=== PATIENT | male | born 1950 | race Caucasian/White ===

== ENCOUNTER 2017-02-21 07:25 | Emergency (ER) | payer OTHER ==
[2017-02-21] MEDS ORDERED: IBUPROFEN 600 MG TAB PO ONE (08:07)
[2017-02-21] MEDS ORDERED: ACETAMINOPHEN 325 MG TAB PO ONE (08:07)
--- NOTE | 2017-02-21 08:32 | EDPHY ---
H & P Time Seen by Provider: 02/21/17 08:05 HPI/ROS: CHIEF COMPLAINT: Left toe/foot injury HISTORY OF PRESENT ILLNESS: The patient is a 66-year-old male who presents to the emergency department with injury to his left toe and foot. Patient states that he had a mechanical trip and fall forward. He now has a deformity of his distal 2nd toe. He has moderate discomfort. The pain radiates up the dorsal aspect of his foot. Patient also complains of an abrasion to his left knee. He has no left knee pain. He is able to ambulate, but with pain in his toe. He did not strike his head or lose consciousness. REVIEW OF SYSTEMS: My complete review of systems is negative except as mentioned in the HPI. Past Medical/Surgical History: Includes scabies, hypertension, chronic back pain, sleep disorder Social history: The patient denies alcohol Smoking Status: Former smoker Physical Exam: Vitals noted GENERAL: Well-appearing, in no acute distress, alert. HEAD: No evidence of trauma. EYES: PERRLA, EOMI, normal to inspection. ENT: Airway intact, no dental or oral injury, no malocclusion, no hemotympanum , normal external examination. NECK: The trachea is midline. There is no crepitus. The C-spine is nontender. NEXUS criteria is negative (no midline tenderness, no distracting injury, no altered mental status, no recent alcohol use, no focal neurologic deficit). RESPIRATORY: Clear to auscultation bilaterally, no rales, rhonchi or wheezing. There is no crepitus or palpable rib fractures. CVS: Regular rate and rhythm, no rubs, murmurs, or gallops. ABDOMEN: Soft, nontender, nondistended, normal bowel sounds, no bruising or abrasions. Pelvis: Stable. No tenderness palpation. Hips full range of motion. BACK: Normal to inspection, no spinal tenderness, no spinal step off, no notable bruising or abrasions. SKIN: Normal color, warm, dry. No pallor or diaphoresis. EXTREMITIES: Right upper extremity: Atraumatic. No visible signs of trauma. No tenderness palpation. Neurovascular intact distally. Left upper extremity: Atraumatic. No visible signs of trauma. No tenderness palpation. Neurovascular intact distally. Right lower extremity: Atraumatic. No visible signs of trauma. No tenderness palpation. Neurovascular intact distally. Left lower extremity: The patient has a deformity of his left 2nd distal 5th toe. There is no foot swelling. No open wound or laceration. Patient has brisk capillary refill in all of his toes. Patient has abrasion on his left knee. There is no patellar tenderness palpation. Full range of motion of his left knee. He is able to bear weight on his left knee Atraumatic, neurovascularly intact distally in all extremities, pelvis is stable , hips with full range of motion, moves all extremities freely. NEURO/PSYCH: Alert and oriented x 3, GCS 15, normal mood and affect, normal motor sensory exam. Constitutional: Initial Vital Signs Temperature (C) 36.9 C 02/21/17 07:27 Heart Rate 89 02/21/17 07:27 Respiratory Rate 14 02/21/17 07:27 Blood Pressure 156/99 H 02/21/17 07:27 O2 Sat (%) 94 02/21/17 07:27 O2 Delivery Mode Room Air Allergies/Adverse Reactions: lisinopril Allergy (Verified 07/17/16 21:10) Home Medications: Medication Instructions Recorded Vicodin 5-300 mg Tablet 04/20/16 Metoprolol Tartrate 07/17/16 Permethrin 5% [Elimite 5%] 60 amado TP ONCE #2 tube 07/17/16 Medical Decision Making - Diagnostics Imaging Results: Imaging Impressions Toe X-Ray 02/21/17 07:30 Impression: Dislocated second toe at the proximal interphalangeal joint. Suspect tiny chip fracture. Toe X-Ray 02/21/17 08:22 Impression: Successful reduction. Procedures: Procedure: toe dislocation reduction Patient verbally consented to reduction of his toe. Using standard technique and manual manipulation is toe was reduced. Patient tolerated procedure well. Patient was neurovascularly intact postprocedure. ED Course/Re-evaluation: In the emergency department I discussed possible etiologies with the patient. I answered all his questions. He consented to an x-ray. Left foot x-ray: Patient has a dislocated PIP of his 2nd left toe. No metatarsal fracture I discussed the result with the patient. He consented to reduction. The patient's toe was reduced manually. Patient tolerated the procedure well. Post reduction x-ray was ordered. Left foot x-ray post reduction: The patient's toe was reduced. I discussed the result with the patient. He is placed in a [place]eca boot. Post splint placement patient was neurovascular intact distally. He is given warnings. He will follow up with Orthopedics. Differential Diagnosis: My differential includes but is not limited to dislocation, fracture, sprain, contusion - Data Points Medications Given: Discontinued Medications Acetaminophen (Tylenol) 650 mg PO EDNOW ONE Stop: 02/21/17 08:08 Last Admin: 02/21/17 08:11 Dose: 650 mg Ibuprofen (Motrin) 600 mg PO EDNOW ONE Stop: 02/21/17 08:08 Last Admin: 02/21/17 08:11 Dose: 600 mg Departure - Departure Disposition: Home, Routine, Self-Care Clinical Impression: Toe dislocation Qualifiers: Encounter type: initial encounter Laterality: left Qualified Code(s): S93.105A - Unspecified dislocation of left toe(s), initial encounter Condition: Good Instructions: Toe Fracture (ED) Additional Instructions: Keep your boot in place. Return with increasing pain, swelling or any other concerns. You need close follow-up with Orthopedics. Referrals: Sepideh Mejias MD [Primary Care Provider] - 5-7 days, call for appt. James Robles MD [Medical Doctor] - 5-7 days, if not improved
[2017-02-21 09:01] VITALS: BP 133/92; PULSE 76; RESP 18; TEMP 99; O2SAT 92
== END 2017-02-21 08:59 | disposition home or self-care (01) ==
PROC: 0SSQXZZ Reposition Left Toe Phalangeal Joint, External Approach (ICD-10-PCS; principal; 2017-02-21)
DX: S93.115A Dislocation of interphalangeal joint of left lesser toe(s), initial encounter (principal); I10 Essential (primary) hypertension; Z87.891 Personal history of nicotine dependence; W01.0XXA Fall on same level from slipping, tripping and stumbling without subsequent striking against object, initial encounter
CPT/HCPCS: 28660; 73660; 99283; L4386

== ENCOUNTER 2017-05-26 21:17 | Emergency (ER) | payer OTHER ==
--- NOTE | 2017-05-26 22:10 | EDPHY ---
H & P Stated Complaint: l sided traore HPI/ROS: HPI CHIEF COMPLAINT: Left-sided headache x2 months HISTORY OF PRESENT ILLNESS: This patient is otherwise healthy 66-year-old male he does have significant past medical history for hypertension, not on any blood pressure medications, history of scabies and obesity. History of C diff. Patient presents emergency room stating that he has had 2 months or 6-8 weeks of left-sided throbbing pressure-like headache. He denies visual disturbance. Denies neck pain, neck stiffness, fever, numbness or tingling, focal weakness, visual disturbance. States the headache is described as a throbbing pulsating pressure pain left side of his head. Been there present for 2 months. Decided come the emergency room as his ex- encouraged him to as he has been complaining of this for 2 months and is not seek medical care for this. Past Medical History: Hypertension, history scabies, C diff, obesity Past Surgical History: No recent surgery Social History: Denies daily use drugs alcohol tobacco products however has been using marijuana recently. Family History: Noncontributory ROS REVIEW OF SYSTEMS: A comprehensive 10 point review of systems is otherwise negative aside from elements mentioned in the history of present illness. Exam Constitutional appears nontoxic, triage nursing summary reviewed, vital signs reviewed, awake/alert. Eyes normal conjunctivae and sclera, EOMI, PERRLA. HENT normal inspection, atraumatic, moist mucus membranes, no epistaxis, neck supple/ no meningismus, no raccoon eyes. Respiratory clear to auscultation bilaterally, normal breath sounds, no respiratory distress, no wheezing. Cardiovascular rate normal, regular rhythm, no murmur, no edema, distal pulses normal. Gastrointestinal soft, non-tender, no rebound, no guarding, normal bowel sounds, no distension, no pulsatile mass. Genitourinary no CVA tenderness. Musculoskeletal no midline vertebral tenderness, full range of motion, no calf swelling, no tenderness of extremities, no meningismus, good pulses, neurovascularly intact. Skin pink, warm, & dry, no rash, skin atraumatic. Neurologic normal neurological exam, awake, alert and oriented x 3, AAOx3, moves all 4 extremities equally, motor intact, sensory intact, CN II-XII intact , normal cerebellar, normal vision, normal speech. Psychiatric normal mood/affect. Heme/Lymph/Immune no lymphadenopathy. Differential Diagnosis: Includes but is not limited to in a particular order, migraine headache, tension headache, cluster headache, intracranial mass, aneurysm, vascular malformation, hypertension headache Medical Decision Making: Plan for this patient IV establishment, monitor, CT head without contrast, CT angiogram head and neck, migraine cocktail, IV fluids , basic blood work. Re-evaluate. Re-evaluation: 1234AM: Patient's CT scan angiogram head and neck and CT head without contrast are unremarkable for mass, dissection or aneurysm. No bleed. Unremarkable CT imaging of his head and neck. Patient's blood work has been reviewed is unremarkable vital signs are stable. Patient's blood pressure was noted to be elevated when he arrived here is down on its own. I do recommend he follows up with his primary care doctor about his headache as well distally he is blood pressure. He is not on any blood pressure medication. He says he reacts very ill to most of them. I do not feel that he needs an acute lower his blood pressure this time her need for lowering of his blood pressure at this time. Recommend close follow-up with his PCP. He understands this. Source: Patient - Personal History Current Tetanus Diphtheria and Acellular Pertussis (TDAP): Unsure - Medical/Surgical History Hx Asthma: No Hx Chronic Respiratory Disease: No Hx Diabetes: No Hx Cardiac Disease: No Hx Renal Disease: No Hx Cirrhosis: No Hx Alcoholism: No Hx HIV/AIDS: No Hx Splenectomy or Spleen Trauma: No Other PMH: htn/back pain/neck/bilat shoulder pain, sleep disorder - Social History Smoking Status: Former smoker Constitutional: Initial Vital Signs Temperature (C) 36.7 C 05/26/17 21:24 Heart Rate 94 05/26/17 21:24 Respiratory Rate 16 05/26/17 21:24 Blood Pressure 179/119 H 05/26/17 21:24 O2 Sat (%) 93 05/26/17 21:24 O2 Delivery Mode Nasal Cannula O2 (L/minute) 2 Allergies/Adverse Reactions: lisinopril Allergy (Verified 07/17/16 21:10) Home Medications: Medication Instructions Recorded Vicodin 5-300 mg Tablet 04/20/16 Medical Decision Making - Diagnostics Imaging Results: Imaging Impressions Head CT 05/26/17 22:18 Impression: No acute intracranial findings. Findings discussed with Reinier Beckford MD 05/27/2017 at 0:22. Head CTA 05/26/17 22:20 Impression: 1. No acute vascular findings. 2. Mild stenosis of the distal left vertebral artery. 3. Additional findings as above. Stenoses are calculated using [place] Symptomatic Carotid Endarterectomy Trial (NASCET) criteria. Findings discussed with Reinier Beckford MD 05/27/2017 at 0:22. Neck CTA 05/26/17 22:20 Impression: 1. No acute vascular findings. 2. Mild stenosis of the distal left vertebral artery. 3. Additional findings as above. Stenoses are calculated using [place] Symptomatic Carotid Endarterectomy Trial (NASCET) criteria. Findings discussed with Reinier Beckford MD 05/27/2017 at 0:22. - Data Points Laboratory Results: Laboratory Results 05/26/17 22:41 05/26/17 22:41 05/26/17 05/26/17 05/26/17 22:41 22:41 22:41 WBC 7.65 10^3/uL 10^3/uL (3.80-9.50) RBC 6.21 10^6/uL 10^6/uL (4.40-6.38) Hgb 17.6 g/dL H g/dL (13.7-17.5) Hct 54.6 % H % (40.0-51.0) MCV 87.9 fL fL (81.5-99.8) MCH 28.3 pg pg (27.9-34.1) MCHC 32.2 g/dL L g/dL (32.4-36.7) RDW 12.4 % % (11.5-15.2) Plt Count 193 10^3/uL 10^3/uL (150-400) MPV 9.8 fL fL (8.7-11.7) Neut % (Auto) 59.1 % % (39.3-74.2) Lymph % (Auto) 25.9 % % (15.0-45.0) [place] % (Auto) 12.7 % % (4.5-13.0) Eos % (Auto) 1.6 % % (0.6-7.6) Baso % (Auto) 0.4 % % (0.3-1.7) Nucleat RBC Rel Count 0.0 % % (0.0-0.2) Absolute Neuts (auto) 4.53 10^3/uL 10^3/uL (1.70-6.50) Absolute Lymphs (auto) 1.98 10^3/uL 10^3/uL (1.00-3.00) Absolute Monos (auto) 0.97 10^3/uL H 10^3/uL (0.30-0.80) Absolute Eos (auto) 0.12 10^3/uL 10^3/uL (0.03-0.40) Absolute Basos (auto) 0.03 10^3/uL 10^3/uL (0.02-0.10) Absolute Nucleated RBC 0.00 10^3/uL 10^3/uL (0-0.01) Immature Gran % 0.3 % % (0.0-1.1) Immature Gran # 0.02 10^3/uL 10^3/uL (0.00-0.10) PT 12.7 SEC SEC (12.0-15.0) INR 0.96 (0.83-1.16) Sodium 140 mEq/L mEq/L (134-144) Potassium 4.6 mEq/L mEq/L (3.5-5.2) Chloride 104 mEq/L mEq/L (97-110) Carbon Dioxide 24 mEq/l mEq/l (22-31) Anion Gap 12 mEq/L mEq/L (8-16) BUN 15 mg/dL mg/dL (7-23) Creatinine 1.0 mg/dL mg/dL (0.7-1.3) Estimated GFR > 60 Glucose 99 mg/dL mg/dL (70-100) Calcium 8.9 mg/dL mg/dL (8.5-10.4) Medications Given: Discontinued Medications Dexamethasone (Decadron Injection) 10 mg IVP EDNOW ONE Stop: 05/26/17 22:21 Last Admin: 05/26/17 22:34 Dose: 10 mg Diphenhydramine HCl (Benadryl Injection) 50 mg IVP EDNOW ONE Stop: 05/26/17 22:21 Last Admin: 05/26/17 22:34 Dose: 50 mg Hydromorphone HCl (Dilaudid) 0.5 mg IVP EDNOW ONE Stop: 09/02/17 22:22 Last Admin: 05/26/17 22:34 Dose: 0.5 mg Sodium Chloride (Ns) 1,000 mls @ 0 mls/hr IV ONCE ONE; Wide Open PRN Reason: Protocol Stop: 05/26/17 22:19 Last Admin: 05/26/17 22:34 Dose: 1,000 mls Metoclopramide HCl (Reglan Injection) 10 mg IVP EDNOW ONE Stop: 05/26/17 22:21 Last Admin: 05/26/17 22:34 Dose: 10 mg Departure - Departure Disposition: Home, Routine, Self-Care Clinical Impression: Headache Qualifiers: Headache type: unspecified Headache chronicity pattern: chronic headache Intractability: intractable Qualified Code(s): R51 - Headache Hypertension Qualifiers: Hypertension type: essential hypertension Qualified Code(s): I10 - Essential ( primary) hypertension Condition: Good Instructions: Hypertension (ED), Acute Headache (ED) Additional Instructions: 1.Return emergency room if you have worsening symptoms includes worsening headache, high blood pressure vomiting or you do not feel well. 2. I do recommend you have close follow-up with her primary care doctor about her elevated blood pressure. Additionally your headache. Referrals: Sepideh Mejias MD [Primary Care Provider] - As per Instructions
[2017-05-26] MEDS ORDERED: NS 1,000 ML IV ONE (22:18)
[2017-05-26] MEDS ORDERED: DEXAMETHASONE 10 MG/ML VIAL IVP ONE (22:20)
[2017-05-26] MEDS ORDERED: METOCLOPRAMIDE 10 MG/2 ML VIAL IVP ONE (22:20)
[2017-05-26] MEDS ORDERED: HYDROmorphONE/DILAUDID 1 MG/ML INJ IVP ONE (22:21)
[2017-05-26 23:01] LABS: % IMMATURE GRANULYOCYTES 0.3 % (0.0-1.1); ABSOLUTE IMMATURE GRANULOCYTES 0.02 10^3/uL (0.00-0.10); ADD DIFF? NO; ADD MORPH? NO; ADD SCAN? NO; ATYPICAL LYMPHOCYTE FLAG 10 (0-99); FRAGMENT RBC FLAG 0 (0-99); HEMATOCRIT 54.6 % (40.0-51.0); HEMOGLOBIN 17.6 g/dL (13.7-17.5); LEFT SHIFT FLG 0 (0-99); LIPEMIA HEMOLYSIS FLAG 80 (0-99); MEAN CELL HEMOGLOBIN 28.3 pg (27.9-34.1); MEAN CELL HEMOGLOBIN CONCENTR. 32.2 g/dL (32.4-36.7); MEAN CELL VOLUME 87.9 fL (81.5-99.8); MEAN PLATELET VOLUME 9.8 fL (8.7-11.7); PLATELET CLUMPS FLAG 0 (0-99); PLATELET COUNT 193 10^3/uL (150-400); RED BLOOD CELL COUNT 6.21 10^6/uL (4.40-6.38); RED CELL DISTRIBUTION WIDTH 12.4 % (11.5-15.2)
[2017-05-26 23:11] LABS: INR 0.96 (0.83-1.16); PROTIME(PATIENT) 12.7 SEC (12.0-15.0)
[2017-05-26 23:16] LABS: ANION GAP 12 mEq/L (8-16); CALCIUM 8.9 mg/dL (8.5-10.4); CARBON DIOXIDE 24 mEq/l (22-31); CHLORIDE 104 mEq/L (97-110); GLOMERULAR FILTRATION RATE > 60; GLUCOSE 99 mg/dL (70-100); POTASSIUM 4.6 mEq/L (3.5-5.2); SODIUM 140 mEq/L (134-144)
[2017-05-26] MEDS ORDERED: IOPAMIDOL (ISOVUE 370) 100 ML BTL IV ONE (23:26)
[2017-05-27] VITALS: RESP 16
[2017-05-27 00:54] VITALS: BP 140/95; PULSE 75; TEMP 97.5; O2SAT 93
== END 2017-05-27 00:52 | disposition home or self-care (01) ==
DX: R51 Headache (principal); I10 Essential (primary) hypertension; E86.9 Volume depletion, unspecified; Z87.891 Personal history of nicotine dependence
CPT/HCPCS: 70450; 70496; 70498; 96361; 96374; 99285; J1100; J1170; J1200; J2765; Q9967

== ENCOUNTER 2017-07-02 01:30 | Emergency (ER) | payer OTHER ==
[2017-07-02 01:41] VITALS: PULSE 85; O2SAT 94
[2017-07-02] MEDS ORDERED: FLUORESCEIN SODIUM 1 MG STRIP OP ONE (01:55)
[2017-07-02] MEDS ORDERED: PROPARACAINE 0.5% 15 ML OPHT DROP OP ONE (01:55)
--- NOTE | 2017-07-02 01:58 | EDPHY ---
H & P Stated Complaint: LEFT EYE IRRITATION AFTER TRIMMING TREES TODAY HPI/ROS: HPI CHIEF COMPLAINT: Left eye pain. HISTORY OF PRESENT ILLNESS: Patient is a 66-year-old male who presents emergency room with left eye discomfort. He states today he was cutting trees with a saw. He was wearing protective eye wear. Additionally states that he was cutting metal after cutting trees. He noticed around 3 o'clock after was done he had some left eye irritation. This progressed this evening. Got worse. He denies loss of vision or blurry vision. He has left eye pain he is focally tender 1 area. Tender at the 10 to 11:00 position. He thinks he may have gotten something in it or irritated. Past Medical History: Hypertension, C diff, scabies Past Surgical History: No recent surgery Social History: Denies daily use drugs alcohol tobacco products. Family History: Noncontributory ROS REVIEW OF SYSTEMS: A comprehensive 10 point review of systems is otherwise negative aside from elements mentioned in the history of present illness. Exam Constitutional triage nursing summary reviewed, vital signs reviewed, awake/ alert. Eyes normal conjunctivae and sclera, EOMI, PERRLA. Right eye normal. Left eye conjunctiva is injected. Globe is soft. Pupil equal round react to light. Extraocular movements intact. No proptosis no surrounding cellulitis. Proparacaine was given 2 drops in this greatly relieved his pain. Fluorescein was instilled in the eye there is no corneal abrasion. I do not appreciate a foreign body. Lids were everted and I do not appreciate foreign bodies. Slit- lamp was used and anterior chamber is normal. Posterior chamber without I dilatation looks normal. Again no foreign bodies appreciated. Eye pressure checked with Thomas-Pen 10, 10, 11 HENT normal inspection, atraumatic, moist mucus membranes, no epistaxis, neck supple/ no meningismus, no raccoon eyes. Respiratory clear to auscultation bilaterally, normal breath sounds, no respiratory distress, no wheezing. Cardiovascular rate normal, regular rhythm, no murmur, no edema, distal pulses normal. Gastrointestinal soft, non-tender, no rebound, no guarding, normal bowel sounds, no distension, no pulsatile mass. Genitourinary no CVA tenderness. Musculoskeletal no midline vertebral tenderness, full range of motion, no calf swelling, no tenderness of extremities, no meningismus, good pulses, neurovascularly intact. Skin pink, warm, & dry, no rash, skin atraumatic. Neurologic awake, alert and oriented x 3, AAOx3, moves all 4 extremities equally, motor intact, sensory intact, CN II-XII intact, normal cerebellar, normal vision, normal speech. Psychiatric normal mood/affect. Heme/Lymph/Immune no lymphadenopathy. Differential Diagnosis:. But is not limited to in a particular order corneal abrasion, corneal tear, foreign body, traumatic iritis, conjunctivitis, foreign body under the lids, lid irritation, conjunctival tear Medical Decision Making: Plan for this patient slit-lamp exam, proparacaine and fluorescein. Check eye pressure. Rubens lids foreign bodies. Evaluate for foreign body or tear. Or abrasion. Re-evaluation: Source: Patient - Personal History Current Tetanus/Diphtheria Vaccine: Yes - Medical/Surgical History Hx Asthma: No Hx Chronic Respiratory Disease: No Hx Diabetes: No Hx Cardiac Disease: No Hx Renal Disease: No Hx Cirrhosis: No Hx Alcoholism: No Hx HIV/AIDS: No Hx Splenectomy or Spleen Trauma: No Other PMH: htn/back pain/neck/bilat shoulder pain, sleep disorder - Social History Smoking Status: Former smoker Constitutional: Initial Vital Signs Temperature (C) 37.3 C 07/02/17 01:37 Heart Rate 85 07/02/17 01:37 Respiratory Rate 18 07/02/17 01:37 Blood Pressure 142/109 H 07/02/17 01:37 O2 Sat (%) 94 07/02/17 01:37 O2 Delivery Mode Room Air Allergies/Adverse Reactions: lisinopril Allergy (Verified 07/17/16 21:10) Home Medications: Medication Instructions Recorded Vicodin 5-300 mg Tablet 04/20/16 Medical Decision Making - Data Points Medications Given: Discontinued Medications Fluorescein Sodium (Mhwae-T-Bfiud) 1 mg OP EDNOW ONE Stop: 07/02/17 01:56 Last Admin: 07/02/17 02:03 Dose: 1 mg Proparacaine HCl (Alcaine 0.5%) 1 drops OP EDNOW ONE Stop: 07/02/17 01:56 Last Admin: 07/02/17 02:03 Dose: 1 drop Departure - Departure Disposition: Home, Routine, Self-Care Clinical Impression: Irritation of left eye Condition: Good Instructions: Eye Pain (ED) Additional Instructions: 1. Do not rub your eye. 2. Antibiotic eyedrops as prescribed. 3. Please follow up with Ophthalmology tomorrow. Call their early in the morning for an appointment. Your should seen by them. 4. Return emergency room if develops worsening symptoms includes worsening eye pain, visual disturbance. 5. Cool compresses. 6. Ibuprofen or Tylenol for pain control. Referrals: Sepideh Mejias MD [Primary Care Provider] - As per Instructions Damien Tsai MD [Medical Doctor] - As per Instructions
[2017-07-02] MEDS ORDERED: OFLOXACIN 0.3% SOLN PREPACK OPHT.BTL TAKEHOME ONE (02:26)
[2017-07-02 02:54] VITALS: BP 152/100; RESP 16; TEMP 97.9
== END 2017-07-02 02:57 | disposition home or self-care (01) ==
DX: H57.8 Other specified disorders of eye and adnexa (principal); I10 Essential (primary) hypertension; Z87.891 Personal history of nicotine dependence

== ENCOUNTER 2017-08-20 03:54 | Emergency (ER) | payer OTHER ==
[2017-08-20 04:06] VITALS: BP 132/107; PULSE 85; RESP 18; TEMP 98.8; O2SAT 95
--- NOTE | 2017-08-20 04:42 | EDPHY ---
H & P Stated Complaint: Possible Scabies Time Seen by Provider: 08/20/17 04:12 HPI/ROS: HPI The patient presents with rash which he has had for just over a year. It is mostly on his left abdomen, though also on his legs. He has been seen by his primary care doctor, Dermatology, infectious disease for this. He has been treated with permethrin, ivermectin, and he has also brought ivermectin on the Internet in liquid and topical form. He has been using this on what sounds like a near daily basis. He explains that several of his family members have a similar rash. He has some times when the rash nearly completely subsides, though it is gotten worse lately. He he comes in asking for a referral to another doctor or advice on how to treat this rash. REVIEW OF SYSTEMS Constitutional: No fever, no chills. Eyes: No discharge. ENT: No sore throat. Cardiovascular: No chest pain, no palpitations. Respiratory: No cough, no shortness of breath. Gastrointestinal: No abdominal pain, no vomiting. Genitourinary: No hematuria. Musculoskeletal: No back pain. Skin: No rashes. Neurological: No headache. PMHx: Hypertension Soc Hx: Lives alone, cares for his son who is schizophrenia PHYSICAL General Appearance: Alert, no distress Eyes: Pupils equal and round no pallor or injection ENT, Mouth: Mucous membranes moist Respiratory: Breathing comfortably Neurological: A&O, moves all extremities Skin: Warm and dry, left-sided of abdomen with diffuse, confluent erythematous macules with areas of excoriation Musculoskeletal: Neck is supple non tender Extremities: symmetrical, full range of motion Psychiatric: Patient is oriented X 3, there is no agitation Source: Patient Exam Limitations: No limitations - Personal History Current Tetanus/Diphtheria Vaccine: Yes Current Tetanus Diphtheria and Acellular Pertussis (TDAP): Yes - Medical/Surgical History Hx Asthma: No Hx Chronic Respiratory Disease: No Hx Diabetes: No Hx Cardiac Disease: No Hx Renal Disease: No Hx Cirrhosis: No Hx Alcoholism: No Hx HIV/AIDS: No Hx Splenectomy or Spleen Trauma: No Other PMH: htn/back pain/neck/bilat shoulder pain, sleep disorder - Social History Smoking Status: Former smoker Constitutional: Initial Vital Signs Temperature (C) 37.1 C 08/20/17 03:59 Heart Rate 85 08/20/17 03:59 Respiratory Rate 18 08/20/17 03:59 Blood Pressure 132/107 H 08/20/17 03:59 O2 Sat (%) 95 08/20/17 03:59 O2 Delivery Mode Room Air Allergies/Adverse Reactions: lisinopril Allergy (Verified 07/17/16 21:10) Home Medications: Medication Instructions Recorded Vicodin 5-300 mg Tablet 04/20/16 Medical Decision Making Differential Diagnosis: This is a 66-year-old man with history of pruritic rash for the last 1 year who presents to the emergency department asking for referral and my opinion on this rash. He was initially diagnosed with scabies, treated with permethrin, then ivermectin. He has been self treating himself with ivermectin which he is buying on the Internet. He has been seen by several specialists including infectious disease, Dermatology. His primary care physician has also been involved. There is no indication of superinfection on the rash today, it is unclear if it is scabies. I informed him that he could go to [facility] if he would like a 2nd opinion. He was happy with this plan. He will be discharged from the emergency department. Departure - Departure Disposition: Home, Routine, Self-Care Clinical Impression: Rash Condition: Good Instructions: Acute Rash (ED) Additional Instructions: If you would like a 2nd opinion for your rash, you can call the number below to ask for an appointment with the chopper feeder or infectious disease doctor. [facility] [address] [place] [id number] Referrals: Sepideh Mejias MD [Primary Care Provider] - As per Instructions
== END 2017-08-20 04:56 | disposition home or self-care (01) ==
DX: R21 Rash and other nonspecific skin eruption (principal); I10 Essential (primary) hypertension; Z87.891 Personal history of nicotine dependence

== ENCOUNTER → 2018-05-17 | Outpatient (CLI) | payer OTHER ==
[~2018-05-17] MED LIST: LIDOCAINE 1% 300 MG/30 ML SDV ONE; THROMBIN (BOVINE) 5,000 UNIT VIAL TP ONE
== END ==
LOC: FIMAGING 11:11
PROVIDERS: ATTEND Radiology Diagnostic Radiology
PROC: 3E053PZ Introduction of Platelet Inhibitor into Peripheral Artery, Percutaneous Approach (ICD-10-PCS; principal; 2018-05-17)
DX: I72.4 Aneurysm of artery of lower extremity (principal); Z48.812 Encounter for surgical aftercare following surgery on the circulatory system

== ENCOUNTER 2018-05-25 17:29 | Emergency (ER) | payer OTHER ==
[2018-05-25 17:37] VITALS: BP 147/92
--- NOTE | 2018-05-25 17:47 | EDPHY ---
H & P Stated Complaint: ORTHO SURG 05/01 HAS STITCHES IN L TERRY AREA/WOUND RECHECK AND? REMOVAL Time Seen by Provider: 05/25/18 17:39 HPI/ROS: CHIEF COMPLAINT: Wound dehiscence HISTORY OF PRESENT ILLNESS: Patient is a 67-year-old man who comes to the emergency department complaining of a wound on his left terry that has dehisced slightly and had subcutaneous sutures visible. He cut the subcutaneous suture out earlier today and states that there is a piece that is stuck in there at that is still attached to something. No drainage. No bleeding. He is ambulating without difficulty. This was a bone spur that was removed 1 month ago. Severity: Mild Modifying factors: None REVIEW OF SYSTEMS: Constitutional: denies: chills, fever, recent illness, recent injury EENTM: denies: blurred vision, double vision, nose congestion Respiratory: denies: cough, shortness of breath Cardiac: denies: chest pain, irregular heart rate, lightheadedness, palpitations Gastrointestinal/Abdominal: denies: abdominal pain, diarrhea, nausea, vomiting, blood streaked stools Genitourinary: denies: dysuria, frequency, hematuria, pain Musculoskeletal: denies: joint pain, muscle pain Skin: See HPI Neurological: denies: headache, numbness, paresthesia, tingling, dizziness, weakness Hematologic/Lymphatic: denies: blood clots, easy bleeding, easy bruising Immunologic/allergic: denies: HIV/AIDS, transplant 10 systems reviewed and negative except as noted EXAM: GENERAL: Well-appearing, well-nourished and in no acute distress. HEAD: Atraumatic, normocephalic. EYES: Pupils equal round and reactive to light, extraocular movements intact, sclera anicteric, conjunctiva are normal. ENT: TMs normal, nares patent, oropharynx clear without exudates. Moist mucous membranes. NECK: Normal range of motion, supple without lymphadenopathy or JVD. LUNGS: Breath sounds clear to auscultation bilaterally and equal. No wheezes rales or rhonchi. HEART: Regular rate and rhythm without murmurs, rubs or gallops. ABDOMEN: Soft, nontender, normoactive bowel sounds. No guarding, no rebound. No masses appreciated. BACK: No CVA tenderness, no spinal tenderness, step-offs or deformities EXTREMITIES: Normal range of motion, no pitting or edema. No clubbing or cyanosis. NEUROLOGICAL: Cranial nerves II through XII grossly intact. Normal speech, normal gait. 5/5 strength, normal movement in all extremities, normal sensation , normal reflexes PSYCH: Normal mood, normal affect. SKIN: Patient has a small wound with granulation tissue that is slightly dehisced on his left terry. He removed the scab today and a piece of suture. No inflammation or drainage. No tenderness. 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, left shoulder surg CARDIAC STENTS - Social History Smoking Status: Former smoker Alcohol Use: Sober Drug Use: None Constitutional: Initial Vital Signs Temperature (C) 36.8 C 05/25/18 17:32 Heart Rate 80 05/25/18 17:32 Respiratory Rate 17 05/25/18 17:32 Blood Pressure 147/92 H 05/25/18 17:32 O2 Sat (%) 92 05/25/18 17:32 O2 Delivery Mode Room Air Allergies/Adverse Reactions: lisinopril Allergy (Verified 05/13/18 18:50) Other-Enter Comments Home Medications: Medication Instructions Recorded Ascorbic Acid [Vitamin C 500 mg 500 mg PO DAILY 05/13/18 (*)] Calcium Carbonate [Oyster Shell 500 mg PO DAILY 05/13/18 Calcium 500 mg (*)] Herbals/Supplements -Info Only 1 ea PO DAILY 05/13/18 Hydrocodone/Acetaminophen [[place] 1 - 2 each PO HS 05/13/18 7.5-325 Tablet] Magnesium Oxide [Magnesium Oxide 400 mg PO DAILY 05/13/18 400 mg (*)] Propranolol HCl [Inderal 40mg (*)] 20 mg PO BID 05/13/18 Aspirin EC [Aspirin EC 81 mg (*)] 81 mg PO DAILY #30 tab 05/16/18 Atorvastatin Calcium [Lipitor 40 80 mg PO DAILY #30 tab 05/16/18 mg (*)] Clopidogrel Bisulfate [Plavix (*)] 75 mg PO DAILY #30 tab 05/16/18 Clopidogrel Bisulfate [Plavix (*)] 300 mg PO ONCE #1 tab 05/16/18 Medical Decision Making ED Course/Re-evaluation: 5:50 p.m. The patient has a mildly dehisced wound with no sign of infection. He removed the scab today and pieces of suture. It is unclear to me whether not this was subcutaneous suture or suture ment to be removed. It has been in place for about a month. Patient wanted me to reopen his wound and explore after the sutures. I told him I did not think this was a good idea. At this point he stood up from the gurney and grabbed his possessions and walked out of the room and left the department. He did not seem angry but said that if we are not going to help him he would just follow up with his surgeon on Sunday. I agree that this is a good plan. Does not currently look infected. Differential Diagnosis: Partial list of the Differential diagnosis considered include but were not limited to; wound dehiscence, foreign body, infection and although unlikely based on the history and physical exam, I also considered fracture, tumor. I discussed these differential diagnoses and the plan with the patient as well as the usual and expected course. The patient understands that the diagnosis is provisional and that in medicine we are not always correct and that further workup is often warranted. Usual and customary warnings were given. All of the patient's questions were answered. The patient was instructed to return to the emergency department should the symptoms at all worsen or return, otherwise to followup with the physician as we discussed. Departure - Departure Disposition: Home, Routine, Self-Care Clinical Impression: Wound dehiscence, surgical Qualifiers: Encounter type: initial encounter Qualified Code(s): T81.31XA - Disruption of external operation (surgical) wound, not elsewhere classified, initial encounter Condition: Fair Instructions: Wound Dehiscence (ED) Referrals: Sepideh Mejias MD [Primary Care Provider] - As per Instructions
== END 2018-05-25 17:56 | disposition home or self-care (01) ==
DX: T81.31XA Disruption of external operation (surgical) wound, not elsewhere classified, initial encounter (principal); Z98.890 Other specified postprocedural states; Z87.891 Personal history of nicotine dependence

== ENCOUNTER 2018-05-26 08:07 | Emergency (ER) | payer OTHER ==
--- NOTE | 2018-05-26 08:33 | EDPHY ---
H & P Stated Complaint: Needs sutures out RLE post op 05/01. 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, left shoulder surg CARDIAC STENTS - Social History Smoking Status: Former smoker Constitutional: Initial Vital Signs Temperature (C) 37.8 C 05/26/18 08:08 Heart Rate 95 05/26/18 08:08 Respiratory Rate 18 05/26/18 08:08 Blood Pressure 146/89 H 05/26/18 08:08 O2 Sat (%) 96 05/26/18 08:08 O2 Delivery Mode Room Air Allergies/Adverse Reactions: lisinopril Allergy (Verified 05/26/18 08:07) Other-Enter Comments Home Medications: Medication Instructions Recorded Ascorbic Acid [Vitamin C 500 mg 500 mg PO DAILY 05/13/18 (*)] Calcium Carbonate [Oyster Shell 500 mg PO DAILY 05/13/18 Calcium 500 mg (*)] Herbals/Supplements -Info Only 1 ea PO DAILY 05/13/18 Hydrocodone/Acetaminophen [[place] 1 - 2 each PO HS 05/13/18 7.5-325 Tablet] Magnesium Oxide [Magnesium Oxide 400 mg PO DAILY 05/13/18 400 mg (*)] Propranolol HCl [Inderal 40mg (*)] 20 mg PO BID 05/13/18 Aspirin EC [Aspirin EC 81 mg (*)] 81 mg PO DAILY #30 tab 05/16/18 Atorvastatin Calcium [Lipitor 40 80 mg PO DAILY #30 tab 05/16/18 mg (*)] Clopidogrel Bisulfate [Plavix (*)] 75 mg PO DAILY #30 tab 05/16/18 Clopidogrel Bisulfate [Plavix (*)] 300 mg PO ONCE #1 tab 05/16/18 Medical Decision Making ED Course/Re-evaluation: CHIEF COMPLAINT: HISTORY OF PRESENT ILLNESS: must have 4 elements: Location, Quality, Severity , Duration, Timing, Context, Modifying Factors, Associated Signs and Symptoms REVIEW OF SYSTEMS: A comprehensive 10 system review of systems is otherwise negative aside from elements mentioned in the history of present illness and medical decision making. PHYSICAL EXAM: HR, BP, O2 Sat, RR. Temp noted General Appearance: Alert, well hydrated, appropriate, and non-toxic appearing. Head: Atraumatic without scalp tenderness or obvious injury Eyes: Pupils equal, round, reactive to light and accommodation, EOMI, no trauma , no injection. Ears: Clear bilaterally, no perforation, normal landmarks Nose: Atraumatic, no rhinorrhea, clear. Throat: There is no erythema or exudates, no lesions, normal tonsils, mucus membranes moist. Neck: Supple, 2+ carotid upstroke, nontender, no lymphadenopathy. Respiratory: No retractions, no distress, no wheezes, and no accessory muscle use. Lungs are clear to auscultation bilaterally. Cardiovascular: Regular rate and rhythm, no murmurs, rubs, or gallops. Bilateral carotid, radial, dorsalis pedis, and posterior tibial pulses intact. Good capillary refill all extremities. Gastrointestinal: Abdomen is soft, nontender, non-distended, no masses, no rebound, no guarding, no peritoneal signs. Musculoskeletal: Normal active ROM of all extremities, atraumatic. Neurological: Alert, appropriate, and interactive. The patient has normal DTRs and non-focal cranial nerves, motor, sensory, and cerebellar exam. Skin: No rashes, good turgor, no nodules on palpation. Past medical history: Past surgical history: Family history: Social history: DIAGNOSTICS/PROCEDURES/CRITICAL CARE TIME: DIFFERENTIAL DIAGNOSIS: MEDICAL DECISION MAKING: Departure - Departure Referrals: Sepideh Mejias MD [Primary Care Provider] - As per Instructions
--- NOTE | 2018-05-26 09:15 | EDPHY ---
General Time Seen by Provider: 05/26/18 08:33 Narrative: CHIEF COMPLAINT: Suture left in his wound HISTORY OF PRESENT ILLNESS: Patient presents with complaints of "there is a stitch in my leg that needs to be taken out."He states that he had a surgical procedure done the 1st week ago April outside of this facility. He feels that there is a suture that has been left in place that she had been removed. He is complaining of pain, itching, redness and warmth. TIME OF INJURY: First week of April TETANUS STATUS: Up-to-date MEDICAL/SURGICAL/SOCIAL HISTORY: Coronary artery disease, diabetes REVIEW OF SYSTEMS: Ten systems reviewed and are negative unless otherwise noted in the HPI EXAMINATION General Appearance: Alert, no distress Head: normocephalic, atraumatic Cardiovascular: Good signs of perfusion. Neurological: A&O, nonfocal Skin: Warm and dry with evidence of mild venous stasis dermatitis. There is a 2 cm vertical incisional wound to the left anterior terry. There is no full dehiscence, but there is a partial dehiscence with 1 small portion of suture extruding. No purulence, fluctuance or surrounding cellulitis. There is minimal erythema of the wound borders. No petechiae or purpura Extremities: Mild tenderness at the site of the wound as above. DIFFERENTIAL DIAGNOSES: Including but not limited to wound dehiscence, incisional complication come postsurgical complication, abscess, cellulitis MDM: 9:00 a.m. Superficial, partially dehisced wound on the left anterior terry. I do not appreciate any fluctuance or signs of full dehiscence or cellulitis. I do not feel comfortable removing the sutures that he is asking me to remove a that did not place this. I am concerned that this may skew the field of view for the surgeon. I would like him to follow up with surgeon on Sunday as he has already arranged. I will place him on Keflex empirically. Discussed ED precautions and answers questions. Discharged home stable condition. SUPERVISION: This patient was independently evaluated without direct involvement of or examination by the attending physician. ED Precautions: Worsening pain. Erythema, edema, cyanosis, pallor, paresthesia or anesthesia. - History Smoking Status: Former smoker - Objective Vital Signs: Initial Vital Signs Temperature (C) 100.0 F 05/26/18 08:08 Heart Rate 95 05/26/18 08:08 Respiratory Rate 18 05/26/18 08:08 Blood Pressure 146/89 H 05/26/18 08:08 O2 Sat (%) 96 05/26/18 08:08 O2 Delivery Mode Room Air Allergies/Adverse Reactions: lisinopril Allergy (Verified 05/26/18 08:07) Other-Enter Comments Home Medications: Medication Instructions Recorded Ascorbic Acid [Vitamin C 500 mg 500 mg PO DAILY 05/13/18 (*)] Calcium Carbonate [Oyster Shell 500 mg PO DAILY 05/13/18 Calcium 500 mg (*)] Herbals/Supplements -Info Only 1 ea PO DAILY 05/13/18 Hydrocodone/Acetaminophen [[place] 1 - 2 each PO HS 05/13/18 7.5-325 Tablet] Magnesium Oxide [Magnesium Oxide 400 mg PO DAILY 05/13/18 400 mg (*)] Propranolol HCl [Inderal 40mg (*)] 20 mg PO BID 05/13/18 Aspirin EC [Aspirin EC 81 mg (*)] 81 mg PO DAILY #30 tab 05/16/18 Atorvastatin Calcium [Lipitor 40 80 mg PO DAILY #30 tab 05/16/18 mg (*)] Clopidogrel Bisulfate [Plavix (*)] 75 mg PO DAILY #30 tab 05/16/18 Clopidogrel Bisulfate [Plavix (*)] 300 mg PO ONCE #1 tab 05/16/18 Cephalexin [Keflex (*)] 500 mg PO TID #30 cap 05/26/18 hydrOXYzine HCL [Hydroxyzine HCl] 50 mg PO Q6-8PRN PRN #12 tablet 05/26/18 Departure - Departure Disposition: Home, Routine, Self-Care Clinical Impression: External incisional dehiscence Qualifiers: Encounter type: initial encounter Qualified Code(s): T81.31XA - Disruption of external operation (surgical) wound, not elsewhere classified, initial encounter Condition: Good Instructions: Acute Wounds (ED) Additional Instructions: 1. Keflex 4 times daily as prescribed for 7-10 days 2. [id number] topical clear Benadryl antihistamine for local irritation/ itching 3. Hydroxyzine as prescribed as needed for itching 4. Follow up with surgeon for definitive care of the wound Referrals: Sepideh Mejias MD [Primary Care Provider] - As per Instructions Prescriptions: Cephalexin [Keflex (*)] 500 mg PO TID #30 cap hydrOXYzine HCL [Hydroxyzine HCl] 50 mg PO Q6-8PRN PRN #12 tablet PRN Reason: Itching
[2018-05-26 09:25] VITALS: BP 134/86
== END 2018-05-26 09:23 | disposition home or self-care (01) ==
DX: T81.31XA Disruption of external operation (surgical) wound, not elsewhere classified, initial encounter (principal); Z87.891 Personal history of nicotine dependence